=== PATIENT | female | born 1935 | race Caucasian/White ===

== ENCOUNTER 2017-11-22 13:00 | Emergency (ER) | payer OTHER ==
[~2017-11-22] VITALS: Ht 157.5 cm; Wt 49.0 kg
[2017-11-22 13:12] VITALS: Ht 157.5 cm; Wt 49.0 kg
[2017-11-22 15:25] LABS: BASOPHIL % 0.2 % (0-2); PLATELET COUNT 141 x10^3mcL (130-400); RED CELL DISTRIBUTION WIDTH 13.8 % (11.5-14.5)
[2017-11-22 15:34] LABS: CALCIUM 8.4 mg/dL (8.5-10.1); CARBON DIOXIDE 20.7 mmol/L (21-32); CHLORIDE SERUM 99 mmol/L (98-107); GLUCOSE SERUM 152 mg/dL (74-106); POTASSIUM SERUM 3.2 mmol/L (3.5-5.1); SODIUM SERUM 131 mmol/L (136-145)
[2017-11-22 15:46] LABS: ALKALINE PHOSPHATASE 61 U/L (46-116); ALT/SGPT 19 U/L (14-59); AST/SGOT 22 U/L (15-37); BILIRUBIN TOTAL 0.5 mg/dL (0.20-1.00); TOTAL PROTEIN, SERUM 7.6 g/dL (6.4-8.2)
[2017-11-22 15:47] LABS: ALBUMIN 3.3 g/dL (3.4-5.0); C REACTIVE PROTEIN 15.3 mg/dL (<=0.9)
[2017-11-22 15:54] LABS: T3 TOTAL 0.58 ng/mL
[2017-11-22 16:07] LABS: FREE THYROXINE INDEX 1.8 ug/dL (1.4-4.5); T4(THYROXINE) 6.1 ug/dL (4.7-13.3)
[2017-11-22 16:08] LABS: CK-MB 1.1 ng/mL (0-3.6)
[2017-11-22 17:05] LABS: ERYTHROCYTE SED RATE 58 mm/hr (0-30)
[2017-11-22 17:15] VITALS: BP 108/49
== END 2017-11-22 17:15 | disposition home or self-care (01) ==
LOC: ED 13:00
PROVIDERS: Specialist
DX: E86.0 Dehydration (principal); E87.6 Hypokalemia; E11.9 Type 2 diabetes mellitus without complications; I10 Essential (primary) hypertension; Z90.49 Acquired absence of other specified parts of digestive tract
CPT/HCPCS: 36600; 83880; 84439; 87046; 87046-59; 87804; J2405; J7030

== ENCOUNTER 2017-11-25 08:32 | Inpatient (IN) | payer OTHER ==
[~2017-11-25] VITALS: Ht 154.9 cm; Wt 51.7 kg
[2017-11-25 10:18] LABS: BASOPHIL % 0.3 % (0-2); PLATELET COUNT 183 x10^3mcL (130-400); RED CELL DISTRIBUTION WIDTH 13.7 % (11.5-14.5)
[2017-11-25 10:21] LABS: ALKALINE PHOSPHATASE 77 U/L (46-116); ALT/SGPT 26 U/L (14-59); AST/SGOT 23 U/L (15-37); BILIRUBIN TOTAL 0.3 mg/dL (0.20-1.00); CALCIUM 8.2 mg/dL (8.5-10.1); CARBON DIOXIDE 20.2 mmol/L (21-32); CREATININE SERUM 1.5 mg/dL (0.6-1.0); GLUCOSE SERUM 136 mg/dL (74-106); TOTAL PROTEIN, SERUM 7.2 g/dL (6.4-8.2)
[2017-11-25 10:25] LABS: ALBUMIN 3.1 g/dL (3.4-5.0)
[2017-11-25 10:51] LABS: CHLORIDE SERUM 105 mmol/L (98-107); POTASSIUM SERUM 3.5 mmol/L (3.5-5.1); SODIUM SERUM 136 mmol/L (136-145)
[2017-11-25 14:26] VITALS: BP 139/54
[2017-11-25] MEDS ORDERED: GLUCOTROL10 MG PO (14:58)
[2017-11-25] MEDS ORDERED: NOR5 PO (14:59)
[2017-11-25] MEDS ORDERED: SIMVASTATIN10 M1 PO (15:00)
[2017-11-25 15:03] LABS: MAGNESIUM 2.4 mg/dL (1.8-2.4); PHOSPHOROUS 2.6 mg/dL (2.5-4.9)
[2017-11-25 15:09] LABS: CHOLESTEROL/HDL RATIO 2.6; T3 TOTAL 0.87 ng/mL
[2017-11-25 15:24] LABS: FREE T4 1.2 ng/dL (0.76-1.46); FREE THYROXINE INDEX 2.3 ug/dL (1.4-4.5); T4(THYROXINE) 7.5 ug/dL (4.7-13.3)
[2017-11-25 18:10] VITALS: BP 121/51
[2017-11-25 21:14] VITALS: BP 123/79
[2017-11-25 22:16] LABS: microscopic required? YES; urine erythrocyte 1+ (NEGATIVE)
[2017-11-25 22:39] LABS: AMPHETAMINE QUAL UR NONE DETECTED (NEG <=1000)
[2017-11-26 04:43] VITALS: BP 126/59
[2017-11-26 07:11] LABS: BASOPHIL % 0.3 % (0-2); PLATELET COUNT 170 x10^3mcL (130-400); RED CELL DISTRIBUTION WIDTH 14.1 % (11.5-14.5)
[2017-11-26 07:15] LABS: CALCIUM 7.5 mg/dL (8.5-10.1); CARBON DIOXIDE 18.3 mmol/L (21-32); CHLORIDE SERUM 112 mmol/L (98-107); CREATININE SERUM 1.2 mg/dL (0.6-1.0); GLUCOSE SERUM 126 mg/dL (74-106); MAGNESIUM 2.2 mg/dL (1.8-2.4); PHOSPHOROUS 2.6 mg/dL (2.5-4.9); POTASSIUM SERUM 4.6 mmol/L (3.5-5.1); SODIUM SERUM 142 mmol/L (136-145)
[2017-11-26 09:00] VITALS: BP 121/52
[2017-11-26 12:49] VITALS: BP 122/50
[2017-11-26 17:02] VITALS: BP 138/59
[2017-11-26 21:09] VITALS: BP 139/56
[2017-11-27] MEDS ORDERED: LEVAQUIN750 MG PO (05:33)
[2017-11-27 05:45] VITALS: BP 132/56
[2017-11-27] MEDS ORDERED: LAC PO (05:45)
[2017-11-27 06:04] LABS: BASOPHIL % 0.2 % (0-2); PLATELET COUNT 195 x10^3mcL (130-400); RED CELL DISTRIBUTION WIDTH 13.6 % (11.5-14.5)
[2017-11-27 06:32] LABS: CALCIUM 7.5 mg/dL (8.5-10.1); CARBON DIOXIDE 18.1 mmol/L (21-32); CHLORIDE SERUM 109 mmol/L (98-107); CREATININE SERUM 1.2 mg/dL (0.6-1.0); GLUCOSE SERUM 165 mg/dL (74-106); PHOSPHOROUS 1.8 mg/dL (2.5-4.9); POTASSIUM SERUM 3.4 mmol/L (3.5-5.1); SODIUM SERUM 138 mmol/L (136-145)
[2017-11-27 08:58] VITALS: BP 143/62
[2017-11-27] MEDS ORDERED: BAYER ASPIRIN R81 MG PO (11:05)
[2017-11-27 12:59] VITALS: BP 124/60; BP 143/62
[2017-11-27 14:12] VITALS: BP 124/60
[2017-11-29 07:52] VITALS: Ht 154.9 cm; Wt 51.7 kg
== END 2017-11-27 15:10 | disposition home or self-care (01) | DRG 391 ==
LOC: ED 08:32 → DU 13:15 → MU 11-27 10:33
PROVIDERS: Emergency Medicine; Family Medicine
DX: A08.4 Viral intestinal infection, unspecified (principal); N17.0 Acute kidney failure with tubular necrosis; N39.0 Urinary tract infection, site not specified; Z66 Do not resuscitate; D64.9 Anemia, unspecified; E83.51 Hypocalcemia; E78.5 Hyperlipidemia, unspecified; I10 Essential (primary) hypertension; E86.0 Dehydration; E11.65 Type 2 diabetes mellitus with hyperglycemia; Z90.710 Acquired absence of both cervix and uterus; Z90.49 Acquired absence of other specified parts of digestive tract
CPT/HCPCS: 82962; 83880; 84439; 87046; 87046-59; J0696; J7030; Q0092

== ENCOUNTER 2019-01-24 11:08 | Emergency (ER) | payer OTHER ==
[~2019-01-24] VITALS: Ht 157.5 cm; Wt 49.0 kg
[~2019-01-24 11:08] MED LIST: BAYER ASPIRIN R81 MG PO; GLUCOTROL10 MG PO; LAC PO; LEVAQUIN750 MG PO; NOR5 PO; SIMVASTATIN10 M1 PO
[2019-01-24 11:09] VITALS: Ht 157.5 cm; Wt 49.0 kg
[2019-01-24 11:31] VITALS: BP 135/77
== END 2019-01-24 12:30 | disposition home or self-care (01) ==
LOC: ED 11:08
DX: J20.9 Acute bronchitis, unspecified (principal); I10 Essential (primary) hypertension; E11.9 Type 2 diabetes mellitus without complications

== ENCOUNTER 2020-08-15 15:41 | Emergency (ER) | payer OTHER, SELFPAY ==
[~2020-08-15] VITALS: Ht 152.4 cm; Wt 49.4 kg
[2020-08-15 15:43] VITALS: BP 117/72; Ht 152.4 cm; Wt 49.4 kg
== END 2020-08-15 17:17 | disposition home or self-care (01) ==
LOC: ED 15:41
DX: U07.1 COVID-19 (principal); I10 Essential (primary) hypertension; E11.9 Type 2 diabetes mellitus without complications; Z90.710 Acquired absence of both cervix and uterus
CPT/HCPCS: U0003